=== PATIENT | male | born 1990 | race Caucasian/White ===

== ENCOUNTER 2016-09-24 15:33 | Emergency (ER) | payer OTHER ==
[~2016-09-24] VITALS: Ht 180.3 cm; Wt 75.0 kg
[2016-09-24 18:48] VITALS: BP 115/69
[2016-09-24] MEDS ORDERED: LORAZEPAM 2MG/ML CPJ IM PRN (19:00)
== END 2016-09-24 19:34 | disposition home or self-care (01) ==
LOC: ER 16:21
DX: F15.10 Other stimulant abuse, uncomplicated (principal); F20.9 Schizophrenia, unspecified; F41.0 Panic disorder [episodic paroxysmal anxiety]; F32.9 Major depressive disorder, single episode, unspecified; F17.200 Nicotine dependence, unspecified, uncomplicated
CPT/HCPCS: 99283